=== PATIENT | female | born 1975 | race Caucasian/White ===

== ENCOUNTER 2019-06-28 16:22 | Outpatient (REF) | payer BC, SELFPAY ==
[2019-06-28 21:13] LABS: Calculated LDL 94 mg/dL; Cholesterol 190 mg/dL (50-200); HDL Cholesterol 40 mg/dL (40-60); TSH (W/Ref FT4) 0.74 uIU/mL (0.36-3.74); Triglyceride 282 mg/dL (30-150)
== END 2019-06-28 16:42 ==
LOC: NCHCN 16:22
PROVIDERS: PCP Internal Medicine; Visit Provider Nurse Practitioner Family
DX: M54.5 Low back pain (principal); L98.9 Disorder of the skin and subcutaneous tissue, unspecified; K00.9 Disorder of tooth development, unspecified; Z87.820 Personal history of traumatic brain injury; Z87.891 Personal history of nicotine dependence; Z00.00 Encounter for general adult medical examination without abnormal findings
CPT/HCPCS: 80061; 84443

== ENCOUNTER 2020-08-15 15:17 | Outpatient (REF) | payer OTHER, SELFPAY ==
[2020-08-19 04:39] LABS: Patient Race White; SARS-CoV-2 RNA Undetected (Undetected); SARS-CoV-2 Specimen Source Nasal
== END 2020-08-15 15:37 ==
LOC: NCHCN 15:17
PROVIDERS: PCP Internal Medicine; Visit Provider Nurse Practitioner Family
DX: J02.9 Acute pharyngitis, unspecified (principal)
CPT/HCPCS: U0003

== ENCOUNTER 2020-12-11 18:00 | Emergency (ER) | payer OTHER, SELFPAY ==
--- NOTE | 2020-12-11 18:00 | DI.RAD_ITS ---
EXAM: XR HAND RT COMPLETE CLINICAL HISTORY: s/p fall., bruising over R 5th metacarpal. TECHNIQUE: 2D digital imaging was performed. COMPARISON: No exams were available for comparison FINDINGS: BONES: There is a nondisplaced oblique fracture seen in the midshaft of the 5th metacarpal on the obl ique view. No bony destructive lesion is seen. JOINTS: No dislocation present. SOFT TISSUE: Mild soft tissue swelling adjacent to the 5th metacarpal fracture. IMPRESSION: Nondisplaced fracture of the midshaft of the right 5th metacarpal. DATA REPOSITORY: RADIATION DOSE DELIVERED:
[2020-12-11 18:04] VITALS: BP 112/64; PULSE 83; RESP 16; TEMP 36.6; O2SAT 98
--- NOTE | 2020-12-11 18:10 | W.ED.GENAD ---
Discharge Plan Disposition Patient Disposition: HOME Condition: Stable Discharge Details Clinical Impression: Closed right hand fracture Primary Care Provider: James Sherwood ED Provider: Lyndsey Mccracken Home Meds and New Rx's Prescriptions: Continued ibuprofen 200 MG capsule 200 mg PO Q 6-8 HRS PRN RF: 0 acetaminophen [Tylenol Extra Strength] 500 MG tablet 1,000 mg PO PRN FOR PAIN RF: 0 Discharge Instructions Instructions: Hand Fracture (ED) Additional Instructions: Rest, ice, and elevate the affected area as much as possible. Alternate tylenol and motrin as needed and directed for pain. Take the oxycodone for pain not relieved with Tylenol or Motrin. Call the orthopedics office tomorrow to schedule a follow-up appointment for reevaluation. Return immediately to the emergency department if you develop any worsening or new concerning symptoms. Stand Alone Forms: Work Release Referrals: Phoenix Russell MD [ [facility] STAFF PHYSICIAN] - Discharge Data Discharge Physician: Lyndsey Mccracken Medical Decision Making 45-year-old female with a history of right hand injury status post slip and fall on ice landing on her right hand. She has mild edema and ecchymosis and tenderness to palpation overlying right fifth metacarpal. There is no deformity. Wrist normal to inspection. Neurovascularly intact. Patient referred for x-ray which notes a hairline fracture right fifth metacarpal. Patient placed in a ulnar gutter splint and sling. Patient given oxycodone for home if pain not relieved with Tylenol or Motrin. Patient placed on orthopedic follow-up list. Instructed on importance of RICE. Usual and customary return precautions given prior to discharge. Imaging Data Radiologic Study: Radiologist's impression: XR Right Hand Exam date and time: 12/11/2020 6:58 PM Age: 45 years old Clinical indication: Pain; Hand; Right; Patient HX: S/P fall, bruising over R 5th metacarpal TECHNIQUE: Imaging protocol: XR Right hand. Views: 3 or more views. COMPARISON: CR ARTHITIS SERIES-SABRINA HAND WRIST 01/06/2017 10:25 AM FINDINGS: Bones/joints: A faint linear lucencies seen through the mid aspect of the 5th metacarpal on series 2, image 1. This may represent a nondisplaced oblique hairline fracture through the diaphysis. There is no additional fracture of the hand. No dislocation. No significant arthritic features. Soft tissues: Minor soft tissue swelling adjacent to the 5th metacarpal. IMPRESSION: Appearance suggesting a hairline fracture of the midshaft of the right 5th metacarpal. This is seen on the oblique view. Series 2, image 1. HPI General Mode of arrival: ambulatory. Date/Time Provider Initiated Documentation: 12/11/20 18:08. Limitations to Documentation: no limitations. Information obtained by: patient. HPI Narrative: Patient is a 45-year-old female with no significant past medical history presents with right hand pain after fall today. Patient states she was helping her with his car when she slipped and fell on ice landing on her right hand. She denies any pain in her wrist or any other injuries. She has not taken any medication for pain. Related Data Home Medications Medication Instructions Recorded Confirmed acetaminophen [Tylenol Extra 1,000 mg PO PRN FOR PAIN tab-cap 07/09/16 12/11/20 Strength] ibuprofen 200 mg PO Q 6-8 HRS PRN tab-cap 07/09/16 12/11/20 Allergies Allergy/AdvReac Type Severity Reaction Status Date / Time ciprofloxacin Allergy Hives Unverified 12/11/20 18:07 Sulfa (Sulfonamide Allergy Unverified 12/11/20 18:07 Antibiotics) IV dye Allergy Itching Uncoded 12/11/20 18:07 General Stated Complaint: Orthopedic MARQUISE: 4 Review of Systems All systems reviewed & are unremarkable except as noted in HPI and below PFSH Social History Smoking/Tobacco Use Status: Current every day Smoking risk assessment performed?: Yes Alcohol Intake: never Drug use: Never Substance use type: does not use Do you feel safe at home: Yes Do you feel safe in your relationship?: Yes Exam Const General: cooperative, healthy appearing and no acute distress [facility] Head: normal to inspection Mouth: oral mucosae normal Eyes General: appearance normal, both eyes and all related structures Neck Neck: normal visual inspection Resp Effort & Inspection: normal respiratory effort and able to speak in complete sentences Cardio Rate: regular rate Skin General skin exam: no rashes or lesions noted Neuro General: patient alert, patient awake and patient oriented x3 Motor: muscle tone normal throughout Extrem Hand/finger images: 1. Mild edema and minimal ecchymosis noted to dorsal aspect overlying right fifth metacarpal. No deformity. There is tenderness to palpation overlying dorsal and volar aspects. No open wounds. Other: No pain in wrist with range of motion including flexion, extension, pronation or supination. There is no tenderness to palpation to right dorsal or volar wrist. Right radial and ulnar pulses intact. No right snuffbox tenderness. Psych Appearance: grossly normal Affect: normal affect Course Vital Signs Vital signs: Vital Signs Temperature 97.9 F 12/11/20 18:04 Pulse 83 12/11/20 18:04 Respiratory Rate 16 12/11/20 18:04 Blood Pressure 112/64 12/11/20 18:04 Pulse Oximetry 98 12/11/20 18:04 Temperature 97.9 F 12/11/20 18:04 Temperature Source Skin 12/11/20 18:04 Pulse 83 12/11/20 18:04 Respiratory Rate 16 12/11/20 18:04 Respiratory Effort Non-Labored 12/11/20 18:08 Blood Pressure 112/64 12/11/20 18:04 Blood Pressure Position Sitting 12/11/20 18:04 Pulse Oximetry 98 12/11/20 18:04 Oxygen Delivery Method Room Air 12/11/20 18:04 Oxygen Flow Rate 0 12/11/20 18:04 Pain Level 3 12/11/20 18:04 Procedures Orthopedic Splinting/Casting Injury #1: Side: right Upper Extremity Injury Location: hand Upper Extremity Immobilizer: ulnar gutter
[2020-12-11] MEDS: Ibuprofen 600 MG TAB PO (18:20)
--- NOTE | 2020-12-11 19:25 | DI.VRAD_ITS ---
PROCEDURE INFORMATION: Exam: XR Right Hand Exam date and time: 12/11/2020 6:58 PM Age: 45 years old Clinical indication: Pain; Hand; Right; Patient HX: S/P fall, bruising over R 5th metacarpal TECHNIQUE: Imaging protocol: XR Right hand. Views: 3 or more views. COMPARISON: CR ARTHITIS SERIES-SABRINA HAND WRIST 01/06/2017 10:25 AM FINDINGS: Bones/joints: A faint linear lucencies seen through the mid aspect of the 5th metacarpal on series 2, image 1. This may represent a nondisplaced oblique hairline fracture through the diaphysis. There is no additional fracture of the hand. No dislocation. No significant arthritic features. Soft tissues: Minor soft tissue swelling adjacent to the 5th metacarpal. IMPRESSION: Appearance suggesting a hairline fracture of the midshaft of the right 5th metacarpal. This is seen on the oblique view. Series 2, image 1. Dictated and Authenticated by: James Contreras MD. Ordering:JENNIFER Solorio MD
== END 2020-12-11 20:15 | disposition home or self-care (01) ==
PROVIDERS: Emergency Provider Physician Assistant; PCP Internal Medicine
DX: S62.351A Nondisplaced fracture of shaft of second metacarpal bone, left hand, initial encounter for closed fracture (principal); W00.0XXA Fall on same level due to ice and snow, initial encounter
CPT/HCPCS: 26600; 73130

== ENCOUNTER 2020-12-26 08:10 | Outpatient (CLI) | payer OTHER, SELFPAY ==
--- NOTE | 2020-12-26 08:00 | DI.RAD_ITS ---
EXAM: XR HAND RT COMPLETE CLINICAL HISTORY: follow up TECHNIQUE: COMPARISON: CR,XR XR HAND RT COMPLETE from 12/11/2020 FINDINGS: Three views were obtained. The previously described nondisplaced midshaft 5th metacarpal fracture ap pears to be healing with no change in alignment comparison with examination of December 11 IMPRESSION: RADIATION DOSE DELIVERED: Total DLP
== END 2020-12-26 08:11 | disposition home or self-care (01) ==
LOC: DIORS 08:11
PROVIDERS: PCP Internal Medicine; Referring Provider Internal Medicine; Visit Provider Physician Assistant Surgical
DX: S62.306D Unspecified fracture of fifth metacarpal bone, right hand, subsequent encounter for fracture with routine healing (principal)
CPT/HCPCS: 73130

== ENCOUNTER 2021-01-09 08:47 | Outpatient (CLI) | payer OTHER, SELFPAY ==
--- NOTE | 2021-01-09 08:00 | DI.RAD_ITS ---
EXAM: XR HAND RT LIMITED CLINICAL HISTORY: R hand fx TECHNIQUE: COMPARISON: CR XR HAND RT COMPLETE from 12/26/2020 FINDINGS: Two views were obtained. Previously described mid shaft 5th metacarpal fracture appears to be healin g in position, there is little if any visible fracture plane at this time. IMPRESSION: RADIATION DOSE DELIVERED: Total DLP
== END 2021-01-09 08:48 | disposition home or self-care (01) ==
LOC: DIORS 08:48
PROVIDERS: PCP Internal Medicine; Referring Provider Internal Medicine; Visit Provider Physician Assistant
DX: S62.356D Nondisplaced fracture of shaft of fifth metacarpal bone, right hand, subsequent encounter for fracture with routine healing (principal)
CPT/HCPCS: 73120

== ENCOUNTER 2021-07-20 13:10 | Outpatient (REF) | payer OTHER, SELFPAY ==
[2021-07-20 14:20] LABS: Absolute Basophil Count 0.07 10^3/uL (0.0-0.2); Absolute Eosinophil Count 0.16 10^3/uL (0.0-0.7); Absolute Lymphocyte Count 3.08 10^3/uL (1.2-3.4); Absolute Monocyte Count 1.06 10^3/uL (0.1-0.8); Basophils % 0.3; Eosinophils % 0.7; HCT 47.5 % (36.0-46.0); HGB 15.8 g/dL (11.2-15.7); Immature Grans % 0.5; Lymphocytes % 13.9; MCH 33.3 pg (27.0-33.0); MCHC 33.3 % (32.0-36.0); MCV 100.2 fL (80-95); MPV 11.1 fL (8.0-11.0); Monocytes % 4.8; Neutrophils % 79.8; Nucleated RBC 0 %; Platelet Count 285 10^3/uL (130-400); RBC 4.74 10^6/uL (3.93-5.22); RDW 13.7 % (11.7-14.6); RDW-SD 50.8 fL; WBC 22.16 10^3/uL (4.4-10.8)
[2021-07-20 14:21] LABS: Absolute Neutrophil Count 17.68 10^3/uL (1.2-6.7)
[2021-07-20 14:41] LABS: ALT 32 U/L (14-59); AST 16 U/L (15-37); Albumin 4.2 g/dL (3.4-5.0); Alkaline Phosphatase 97 U/L (46-116); Anion Gap 8.6 mmol/L (3-11); BUN 16 mg/dL (7-18); Bilirubin, Total 0.3 mg/dL (0.2-1.0); CO2 29.4 mmol/L (21.0-32.0); CREATININE 0.8 mg/dL (0.55-1.02); Calcium 9.9 mg/dL (8.5-10.1); Chloride 108 mmol/L (98-107); Glucose 85 mg/dL (74-106); Potassium 4.3 mmol/L (3.5-5.1); Sodium 146 mmol/L (136-145); Total Protein 7.1 g/dL (6.4-8.2)
== END 2021-07-20 13:11 | disposition home or self-care (01) ==
LOC: NCHCN 13:10
PROVIDERS: PCP Internal Medicine; Visit Provider Nurse Practitioner Family
DX: R10.9 Unspecified abdominal pain (principal)
CPT/HCPCS: 80053; 85025; 87086

== ENCOUNTER 2021-08-07 11:40 | Outpatient (REF) | payer OTHER, SELFPAY ==
--- NOTE | 2021-08-07 12:30 | PAPFT_PTH ---
PATIENT: Maribel Kaplan LOC: [facility]#:[id number] AGE/SX: 46/F ROOM: RE08/07/[address]: Opal Salgado : 1975 BED: DIS: 08/07/2021 SPEC #: [id number] RECD: 08/08/21 12:46 STATUS: FELICIA REQ #: [id number] AYLEEN: 08/07/21 12:[address]: Opal Salgado DEPT: [facility] Cytology RECD BY: Nia Yuen ENTERED: 08/08/21 12:46 SP TYPE: PAPFT OTHR DR: James Sherwood Tissues: 1 - CX/ENDOCX FOR PAP SMEARS Procedures: PAP THIN PREP/UVM Screening HPV DNA PROBE Comments: [id number]
== END 2021-08-07 11:41 | disposition home or self-care (01) ==
LOC: NCHCN 11:40
PROVIDERS: PCP Internal Medicine; Visit Provider Nurse Practitioner Family
DX: Z12.4 Encounter for screening for malignant neoplasm of cervix (principal); Z11.51 Encounter for screening for human papillomavirus (HPV)
CPT/HCPCS: 88142; 87624

== ENCOUNTER 2021-09-20 03:32 | Outpatient (CLI) | payer OTHER, SELFPAY ==
--- NOTE | 2021-09-20 13:00 | NS.NUTBLAN_ITS ---
Maribel was referred for Medical Nutrition Therapy for weight management. 5'2 146.5 lbs, BMI: 27. Has gained 40 lbs in last 5 years, usual body weight 110 lbs. Works 5 Am to 3 PM. Sleeps 8 hours per night. No change in appetite in last year. Maribel reports she started gaining weight after her job changed and became more sedentary without changes in her diet. 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 She is upset about her weight gain and worries about getting diabetes. She has hx of gestational diabetes. Labs: no A1C or TSH available. 2019 had elevated triglycerides (282mg/dl) Diet Recall: plain yogurt, balanced meal for lunch (left overs), meat and vegetable for dinner. Diet mostly well balanced and appropriate. From history given by Maribel, she may have insulin resistance making her gain significant weight without excess in caloric intake. Current eating pattern well balanced, with complex carbs, lean protein and healthy fats. 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 Recommend A1C and TSH to assess. If pre diabetic, would recommend metformin or a GLP1ra(rybellus, victoza, ozempic) to help decrease insulin resistance and allow body to shed some weight. Also, encouraged her to walk 2 miles daily as exercise also helps with insulin resistance. Would consider monitoring A1C, lipids, TSH every year and evaluate trends. No follow up planned at this time.
== END 2021-09-20 03:33 | disposition home or self-care (01) ==
LOC: DS 03:32
PROVIDERS: PCP Internal Medicine; Visit Provider Dietitian, Registered
DX: Z71.3 Dietary counseling and surveillance (principal); R63.5 Abnormal weight gain
CPT/HCPCS: 97802

== ENCOUNTER 2021-11-09 18:22 | Outpatient (REF) | payer BC, SELFPAY ==
[2021-11-09 20:20] LABS: Abs Immature Grans 0.06 10^3/uL (0.0-0.06); Absolute Basophil Count 0.06 10^3/uL (0.0-0.2); Absolute Eosinophil Count 0.25 10^3/uL (0.0-0.7); Absolute Lymphocyte Count 3.78 10^3/uL (1.2-3.4); Absolute Monocyte Count 0.99 10^3/uL (0.1-0.8); Basophils % 0.5; Eosinophils % 2.2; HCT 45.5 % (36.0-46.0); HGB 15.2 g/dL (11.2-15.7); Immature Grans % 0.5; Lymphocytes % 33.2; MCH 33.3 pg (27.0-33.0); MCHC 33.4 % (32.0-36.0); MCV 99.8 fL (80-95); MPV 10.8 fL (8.0-11.0); Monocytes % 8.7; Neutrophils % 54.9; Nucleated RBC 0 %; Platelet Count 297 10^3/uL (130-400); RBC 4.56 10^6/uL (3.93-5.22); RDW 13.2 % (11.7-14.6); RDW-SD 49.1 fL; WBC 11.38 10^3/uL (4.4-10.8)
[2021-11-09 20:22] LABS: Absolute Neutrophil Count 6.25 10^3/uL (1.2-6.7)
[2021-11-09 21:17] LABS: Folate 10.1 ng/mL (8.6-20.0); Vitamin B12 313 pg/mL (193-986)
== END 2021-11-09 18:23 | disposition home or self-care (01) ==
LOC: NCHCN 18:22
PROVIDERS: PCP Internal Medicine; Visit Provider Nurse Practitioner Family
DX: E66.9 Obesity, unspecified (principal); D75.89 Other specified diseases of blood and blood-forming organs; R10.9 Unspecified abdominal pain; M08.90 Juvenile arthritis, unspecified, unspecified site
CPT/HCPCS: 82607; 82746; 85025

== ENCOUNTER 2022-01-17 20:37 | Outpatient (REF) | payer BC, SELFPAY ==
[2022-01-19 10:30] LABS: COVID-19 RT-PCR UVMMC Result Negative (Negative)
== END 2022-01-17 20:38 | disposition home or self-care (01) ==
LOC: LBN 20:37
PROVIDERS: PCP Internal Medicine; Visit Provider Physician Assistant
DX: Z20.822 Contact with and (suspected) exposure to COVID-19 (principal)
CPT/HCPCS: U0003